=== PATIENT | female | born 1995 | race Caucasian/White ===

== ENCOUNTER 2019-11-07 08:58 | Day surgery (SDC) | payer OTHER ==
[2019-11-07] MEDS ORDERED: Lactated Ringers 1,000 ML IV SCH (09:30)
--- NOTE | 2019-11-07 09:30 | HP ---
AMENDED REPORT: DATE OF SURGERY: 11/07/2019 HISTORY OF PRESENT ILLNESS: The patient is a 24 year old with no bloody stools, persistent watery stools three to five times a day, cramping mid abdomen. Family history negative for inflammatory bowel disease, celiac or colon cancer. Change in bowel habits unclear etiology, question of celiac colitis, inflammatory bowel disease or other etiology. She is in need of endoscopy for further evaluation. PAST MEDICAL HISTORY: She denies any chronic illness. PAST SURGICAL HISTORY: Tonsillectomy. MEDICATIONS: Dicyclomine,. ALLERGIES: NKDA. FAMILY HISTORY: Diabetes. Inflammatory bowel disease. Skin cancer. SOCIAL HISTORY: No smoking. Occasional alcohol use. REVIEW OF SYSTEMS: Fourteen systems reviewed. No chest pain or palpitations other systems negative or noncontributory as above and per preadmission questionnaire. She denied any specific food intolerance. PHYSICAL EXAMINATION: GENERAL: No acute distress. HEENT: Sclerae nonicteric. NECK: No JVD. CHEST: Equal excursion, nonlabored breathing. CVS: Regular rate and rhythm. ABDOMEN: Soft. No peritoneal signs. EXTREMITIES: No significant edema. NEURO: Alert, oriented, moving extremities symmetrically. No gross motor deficits noted. PSYCH: Appropriate mood and affect. RECTAL: Deferred timed to endoscopy exam. IMPRESSION: Change in bowel habits unclear etiology. It could be colitis, inflammatory bowel disease versus celiac disease or other etiology. Due to her lower abdominal aches and pain, I feel she likely needs colonoscopy for further evaluation given her change in stool. Otherwise if negative may need to consider gallbladder work up or other studies. She understands and agrees to the planned procedure, will proceed with outpatient colonoscopy.
[2019-11-07] MEDS ORDERED: Ketamine HCl 50 MG/ML ONE (11:43)
[2019-11-07] MEDS ORDERED: DIPRIVAN 200 MG/20 ML IV ONE ×3 (11:43→12:06)
[2019-11-07 13:08] VITALS: BP 123/68; PULSE 81; O2SAT 98
--- NOTE | 2019-11-08 11:57 | OP ---
SURGERY DATE/TIME: 11/07/2019 1149 PREOPERATIVE DIAGNOSIS: Change in bowel habits, increased watery diarrheal stools, need for colonoscopy to evaluate for inflammatory bowel disease, celiac disease, colitis or other etiology. POSTOPERATIVE DIAGNOSES: 1) Diverticulosis. 2) Fair bowel prep. 3) Otherwise fairly normal ileum and colon exam. 4) ASA Class II. 5) Withdrawal time 8 minutes. 6) Photo documented appendiceal orifice, ileum and ileocecal valve. PROCEDURES: 1) Colonoscopy to terminal ileum. 2) Retrograde ileoscopy. 3) Random cold biopsies of the ileum and the colon to evaluate for microscopic ileitis or microscopic colitis. SURGEON: Dr. Tha Ulloa. ANESTHESIA: MAC. ESTIMATED BLOOD LOSS: Minimal. INDICATIONS: As noted above. Risks and benefits explained in detail but not limited to and consent obtained. DESCRIPTION OF PROCEDURE AND FINDINGS: The patient is taken to the operating room. MAC anesthesia introduced. After official time out and no disagreement with planned procedure, digital rectal exam did not reveal any rectal masses. She did have some small internal and external hemorrhoids. Otherwise no signs of any digitally palpable masses. Video colonoscope inserted and passed up through the slightly tortuous sigmoid, descending, transverse and ascending colon. With some external pressure the scope was able to be passed around to the cecum. Appendiceal orifice and valve well visualized. The scope was passed up the terminal ileum which was fairly unremarkable. Some random cold biopsies taken to evaluate for microscopic ileitis on retrograde ileoscopy. The scope is slowly and carefully withdrawn over the next eight minutes taking some random cold biopsies in the colon to evaluate for microscopic colitis and to evaluate for other etiologies of symptoms. Otherwise there were no gross signs of any large polyps, masses or obstructing lesions. Prep overall was fair. There was a little bit of liquidy semisolid stool just slightly limiting exam this was suction irrigated as clear as possible. Again, there were no signs of any large polyps, masses or obstructing lesions. Random cold biopsies taken to evaluate for microscopic colitis. She did have a few small diverticula in the left colon. Otherwise no signs of any large polyps, masses or obstructing lesions. She had some small internal hemorrhoids. There were no signs of any large polyps, masses or obstructing lesions. No signs of any maged macroscopic colitis. Cold biopsy taken to evaluate for microscopic ileitis or microscopic colitis to rule out other etiology of her symptoms. Findings discussed with the family over the phone as they were not allowed in the building apparently per hospital policy.
== END 2019-11-07 13:15 | disposition home or self-care (01) ==
LOC: SDC 08:58
PROVIDERS: ATTEND Surgery
DX: K57.30 Diverticulosis of large intestine without perforation or abscess without bleeding (principal); K64.4 Residual hemorrhoidal skin tags; K64.8 Other hemorrhoids
CPT/HCPCS: 84703; J2704